=== PATIENT | male | born 1995 | race Caucasian/White ===

== ENCOUNTER 2019-06-17 16:30 | Emergency (ER) | payer SELFPAY ==
[~2019-06-17] VITALS: Ht 180.3 cm; Wt 61.1 kg
[2019-06-17 16:39] VITALS: BP 143/86
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
--- NOTE | 2019-06-17 17:15 | NUR ---
LESSON INSTRUCTOR AT BEDSIDE.
[2019-06-17 17:41] LABS: AMPHETAMINE SCREEN, URINE Negative (Negative); BARBITURATE SCREEN, URINE Negative (Negative); BENZODIAZEPINE SCREEN, URINE Negative (Negative); CANNABINOID SCREEN, URINE Positive (Negative); COCAINE SCREEN, URINE Negative (Negative); METHADONE SCREEN, URINE Negative (Negative); OPIATE SCREEN, URINE Negative (Negative)
[2019-06-17 17:47] LABS: BASOPHILS # (AUTO) 0.08 x10^3/uL (0-0.1); BASOPHILS % (AUTO) 1 % (0-1); EOSINOPHILS # (AUTO) 0.16 x10^3/uL (0-0.4); EOSINOPHILS % (AUTO) 2 % (1-7); LYMPHOCYTES % (AUTO) 24 % (22-44); MD NO; MEAN CORPUSCULAR HEMOGLOBIN 30.3 pg (27.5-34.5); MEAN CORPUSCULAR HGB CONC 33.9 g/dL (33.2-36.2); MEAN CORPUSCULAR VOLUME 89.3 fL (81-97); MEAN PLATELET VOLUME 8.3 fL (7.4-10.4); MONOCYTES # (AUTO) 0.78 x10^3/uL (0.2-0.8); MONOCYTES % (AUTO) 9 % (2-9); NEUTROPHILS # (AUTO) 5.82 x10^3/uL (1.8-6.8); NEUTROPHILS % (AUTO) 64 % (42-75); PLATELET COUNT 252 x10^3/uL (130-400); RED BLOOD COUNT 5.12 x10^6/uL (4.38-5.82); RED CELL DISTRIBUTION WIDTH 14.1 % (9.4-14.8)
[2019-06-17 17:54] LABS: ANION GAP 5 mmol/L (5-15); CALCIUM 8.5 mg/dL (8.5-10.1); CHLORIDE 108 mmol/L (98-107); CREATININE 0.93 mg/dL (0.7-1.3)
[2019-06-17 17:56] LABS: SALICYLATE LEVEL < 1.7 mg/dL (2.8-20.0)
--- NOTE | 2019-06-17 17:58 | NUR ---
PT PLACED ON LEGAL HOLD. PT IN DIRECT SIGHT OF SITTER. PT RESTING ON [place]. [place].
--- NOTE | 2019-06-17 19:09 | NUR ---
TASK RN: PT ATE 90% OF MEAL TRAY PROVIDED.
== END 2019-06-17 19:25 | disposition home or self-care (01) ==
LOC: ED 19:15
DX: F41.1 Generalized anxiety disorder (principal)
CPT/HCPCS: 36415; 80048; 80307; 82040; 85025; 99283

== ENCOUNTER 2019-07-01 23:51 | Emergency (ER) | payer SELFPAY ==
[~2019-07-01] VITALS: Ht 180.3 cm; Wt 63.4 kg
[2019-07-02 00:08] VITALS: BP 105/74
--- NOTE | 2019-07-02 03:23 | NUR ---
AMBULATE WITHS TEADY GAIT TO ROOM, REQUEST FOOD
== END 2019-07-02 04:10 | disposition home or self-care (01) ==
LOC: ED 07-02 03:15
DX: R05 Cough (principal); F17.200 Nicotine dependence, unspecified, uncomplicated
CPT/HCPCS: 71046; 99283

== ENCOUNTER 2019-07-18 12:15 | Emergency (ER) | payer OTHER ==
[~2019-07-18] VITALS: Ht 180.3 cm; Wt 64.5 kg
[2019-07-18 12:37] LABS: BASOPHILS # (AUTO) 0.06 x10^3/uL (0-0.1); BASOPHILS % (AUTO) 1 % (0-1); EOSINOPHILS # (AUTO) 0.12 x10^3/uL (0-0.4); EOSINOPHILS % (AUTO) 2 % (1-7); LYMPHOCYTES # (AUTO) 2.02 x10^3/uL (1-3.4); LYMPHOCYTES % (AUTO) 33 % (22-44); MD NO; MEAN CORPUSCULAR HGB CONC 33.7 g/dL (33.2-36.2); MEAN PLATELET VOLUME 7.7 fL (7.4-10.4); MONOCYTES # (AUTO) 0.49 x10^3/uL (0.2-0.8); MONOCYTES % (AUTO) 8 % (2-9); NEUTROPHILS % (AUTO) 56 % (42-75); PLATELET COUNT 353 x10^3/uL (130-400); RED BLOOD COUNT 5.25 x10^6/uL (4.38-5.82); RED CELL DISTRIBUTION WIDTH 13.7 % (9.4-14.8)
[2019-07-18 12:45] VITALS: BP 122/85
[2019-07-18 12:49] LABS: ALANINE AMINOTRANSFERASE 37 U/L (12-78); ALBUMIN 3.7 g/dL (3.4-5.0); ANION GAP 6 mmol/L (5-15); CALCIUM 8.5 mg/dL (8.5-10.1); CHLORIDE 110 mmol/L (98-107); CREATININE 0.74 mg/dL (0.7-1.3)
[2019-07-18 12:50] LABS: SALICYLATE LEVEL < 1.7 mg/dL (2.8-20.0)
[2019-07-18 12:51] LABS: ALKALINE PHOSPHATASE 71 U/L (45-117); BILIRUBIN,TOTAL 0.6 mg/dL (0.2-1.0); TOTAL PROTEIN 6.8 g/dL (6.4-8.2)
--- NOTE | 2019-07-18 13:09 | NUR ---
BIB EMS, PT WITH THOUGHTS OF SI, STATES HE WOULD OD BUT DENIES ANY ACCESS TO MEDICATIONS. STATES PRIOR HX OF OD. PT WITH RAMBLING PARANOID THOUGHTS, BUT THEN REQUETS " CAN I HAVE SOMETHING TO EAT, AND MAYBE SOME COFFEE AND JUICE WITH THAT TOO" PT STATES "I KNOW HOW THIS WORKS", WHEN THIS RN INSTRUCTS PT ON REMOVING HIS CLOTHES, PROVIDING URINE SAMPLE AND PLACING HIS BELONGINGS IN THE BELONGINGS BAG. PT COOPERATIVE. PT AGAIN REQUESTS SOMETHING TO EAT AND ASKS IF HE WOULD BE ABLE TO CHOSE WHAT HE WANTS. ALL BELONGINGS COLLECTED AND PLACED IN BAGS X 2 AND PLACED IN LOCKER WITH HIS SCOOTER. MEAL TRAY ORDERED. VSS, NAD NOTED. PT SITTING UP IN GURNEY WATCHING TV.
--- NOTE | 2019-07-18 13:13 | NUR ---
[facility] HEARING IMPAIRED TEACHER AT BEDSIDE. MEAL TRAY PROVIDED.
[2019-07-18 13:31] LABS: CULTURE INDICATED? YES; MICROSCOPIC INDICATED
--- NOTE | 2019-07-18 13:37 | NUR ---
Patient/Caregiver given discharge instructions and they have confirmed that they understand the instructions. Patient ambulatory with steady gait.
[2019-07-18 13:40] LABS: AMPHETAMINE SCREEN, URINE Negative (Negative); BARBITURATE SCREEN, URINE Negative (Negative); BENZODIAZEPINE SCREEN, URINE Negative (Negative); CANNABINOID SCREEN, URINE Positive (Negative); COCAINE SCREEN, URINE Negative (Negative); METHADONE SCREEN, URINE Negative (Negative); OPIATE SCREEN, URINE Negative (Negative)
--- NOTE | 2019-07-18 13:41 | NUR ---
PT DEMANDING TAXI VOUCHER, ALL DAY BUS PASS PROVIDED, PT DEMANDING A PLACE TO STAY, SKILLED NURSING INFORMATION GIVEN, PT HAS CELL PHONE AND APPEARS TO MAKING A VIDEO. PT IN HALLWAY DEMANDING TO TALK WITH NAILING MACHINE OPERATOR. SECURITY CALLED TO ESCORT PATIENT OFF OF THE PROPERTY. NAILING MACHINE OPERATOR, FCO PRESENT AND AWARE.
== END 2019-07-18 13:38 | disposition home or self-care (01) ==
LOC: ED 13:23
DX: F33.9 Major depressive disorder, recurrent, unspecified (principal)
CPT/HCPCS: 36415; 80053; 80307; 81001; 85025; 87086; 99283